=== PATIENT | female | born 1985 | race Caucasian/White ===

== ENCOUNTER 2021-04-19 10:06 | Outpatient (CLI) | payer BC, SELFPAY ==
--- NOTE | ~2021-04-19 | XR_ITS ---
EXAMINATION: XR foot RT min 3V DATE: 04/19/2021 10:28 INDICATION: Right heel pain TECHNIQUE: Dorsoplantar, two oblique and lateral views of the right foot were obtained. COMPARISON: None. FINDINGS: Alignment is normal. Subtle flattening and minimal subarticular sclerosis at the head of the second m etatarsal consistent with osteonecrosis/Freiberg's infraction. No fracture. Joint spaces are normal. Tiny plantar calcaneal spur. No cortical erosions. Soft tissues are unremarkable. IMPRESSION: 1. Tiny plantar calcaneal spur. No acute osseous abnormality. Reviewed, dictated and finalized at location A.
== END 2021-04-19 10:07 | disposition home or self-care (01) ==
LOC: CHSIMG 10:10
PROVIDERS: PCP Family Medicine; Visit Provider Family Medicine
DX: M79.671 Pain in right foot (principal)
CPT/HCPCS: 73630

== ENCOUNTER 2021-05-25 10:40 | Outpatient (RCR) | payer BC, SELFPAY ==
--- NOTE | 2021-05-25 14:05 | PTOPEVAL ---
Thank you for referring Korin Gant to [facility].? The patient is scheduled to be seen for therapy? __2__x/week for 8 visits. Please review, sign, date and return this plan of care CHIDI. I agree with and certify that the following plan of care is medically necessary. Referring Physician Date Admitting Provider: Attending Provider: Chandu Ramos MD Referring Provider: *PT Outpatient Evaluation Start: 05/25/21 13:41 Freq: Status: Active Protocol: Document 05/25/21 10:42 [facility] (Rec: 05/25/21 14:04 [facility] [email or web address]) Therapy Assessment Status Assessment Status Assessment Status Evaluation Evaluation Information Problem Diagnosis right plantar fasciitis Onset 12/06/20 Subjective Information Pt. reports that she began Query Text:As Reported By Patient/ noting right heel pain around Family December. She did some stretching and pain subsided. She then went to [place] in [place] [facility] and pain began to increase. She describes pain on the inside of the right heel. She states that pain is worsened with standing. She enjoys exercise, but has not been able to exercise as of recently to due pain. She reports that her goal for therapy is to decrease her right foot pain. Pain Assessment Timing of Pain Assessment Timing of Pain Assessment Pre-Treatment Pain Scale Pain Scale Used Numeric (1 - 10) Self Report Pain Assessment Right Heel(s) Reported Pain Level 5 Pain Aggravating Factors Exercise/Activity,Walking, Weight Bearing/Standing Pain Score Pain Score 5: Self Report Interventions Used Interventions Used By Clinicians Exercise,Mobilization,Manual Therapy Techniques Lower Extremity Range of Motion General Lower Extremity Range of Motion Gross Lower Extremity Range of Motion -Pt. demonstrates 4 degrees Comments right ankle dorsiflexion with the knee fully extended and 12 degrees left ankle dorsiflexion with the knee fully extended. Posture Posture Standing Position Additional Posture Comments Note mild calcaneal valgus with forefoot varus in standing. Slight genu valgus on both ri
--- NOTE | 2021-06-15 15:42 | PTOPEVAL ---
Thank you for referring Korin Gant to [facility].? The patient is scheduled to be seen for therapy? ____x/week for ___ weeks. Please review, sign, date and return this plan of care CHIDI. I agree with and certify that the following plan of care is medically necessary. Referring Physician Date Admitting Provider: Attending Provider: Chandu Ramos MD Referring Provider: *PT Outpatient Evaluation Start: 05/25/21 13:41 Freq: Status: Active Protocol: Document 06/15/21 13:18 [facility] (Rec: 06/15/21 14:47 [facility] [email or web address]) Therapy Assessment Status Assessment Status Assessment Status Discharge Evaluation Information Problem Diagnosis R Plantar Fasciitis Onset 12/06/20 Additional Evaluation Detail LEFS = 37% Functionally Declined Subjective Information Pt reports that her pain has Query Text:As Reported By Patient/ gotten much better over her Family course of therapy. She has been stretching two times a day and says that if her pain flares up, she is able to reduce her pain by stretching. Pain Assessment Timing of Pain Assessment Timing of Pain Assessment Pre-Treatment Pain Scale Pain Scale Used Numeric (1 - 10) Self Report Pain Assessment Right Heel(s) Reported Pain Level 1 Pain Description Dull,Sharp Pain Score Pain Score 1: Self Report Interventions Used Interventions Used By Clinicians Education,Exercise Lower Extremity Range of Motion General Lower Extremity Range of Motion Gross Lower Extremity Range of Motion R ankle df = 20 degrees Comments L ankle df = 20 degrees Lower Extremity Muscle Strength Testing General Lower Extremity Strength Reason Not Measured WNL/Left,WNL/Right Posture Posture Standing Position Additional Posture Comments R Navicular Tubercle protrudes more than the L in standing barefoot. Palpation Assessment Palpation Palpation No pain with palpation to the L LE medial calcaneal tubercle Gait Assessment Gait Pattern Assessment Gait Pattern No Deviations/Normal General Exercise General Exercises Exercise Description Ther ex Query Text:Record Sets, Reps, -standing gastroc stretch x 2 Resistance, and Position minutes -standing soleus stretch x 2 minutes -plantar fascia stretch x 2 minutes -standing ankle dorsiflexion A
== END 2021-06-15 16:47 | disposition home or self-care (01) ==
LOC: CHSPT 10:40
PROVIDERS: PCP Family Medicine; Visit Provider Family Medicine
DX: M72.2 Plantar fascial fibromatosis (principal)
CPT/HCPCS: 97110; 97112; 97140; 97161

== ENCOUNTER 2023-02-27 08:08 | Emergency (ER) | payer BC, SELFPAY ==
[2023-02-27 08:20] VITALS: BP 114/71; PULSE 99; RESP 16; TEMP 36.7; O2SAT 99
--- NOTE | 2023-02-27 08:23 | ED.GENADULT ---
HPI - General Adult General Chief complaint: Upper Respiratory Infection Stated complaint: COUGH/SINUS PRESSURE/CONGESTION Source: patient, RN notes reviewed and old records reviewed Mode of arrival: ambulatory Limitations: no limitations History of Present Illness HPI narrative: 37-year-old female presents to [facility] with complaint of sinus congestion, sinus pressure, cough, postnasal drip that started Sunday. Patient taking Zyrtec with no relief. Patient denies chest pain, dizziness, weakness, shortness of breath MD complaint: congestion Onset (ago): day(s) (4) Related Data Home Medications Medication Instructions Recorded Confirmed No Home Medications 02/27/23 02/27/23 Allergies Allergy/AdvReac Type Severity Reaction Status Date / Time No Known Allergies Allergy Unverified 02/27/23 08:27 Review of Systems Constitutional: Constitutional: Reports no additional constitutional complaints, Denies body ache(s), Denies chills, Denies fatigue, Denies fever(s) and Reports headache(s) Eyes: Eyes: Reports no additional eye complaints and Denies blurry vision ENT: Reports system reviewed and no additional complaints, except as documented, Denies vertigo, Denies dizziness, Denies ear discharge, Denies otalgia, Denies facial pain, Denies headache(s), Reports nasal congestion, Reports nasal discharge, Reports sinus pain, Reports sinus pressure and Denies sore throat Cardiovascular: Cardiovascular: Reports no additional cardiovascular complaints, Denies chest pain, Denies chest pain at rest, Denies rapid heart rate and Denies dyspnea Respiratory: Respiratory: Reports no additional respiratory complaints, Denies chest congestion, Reports cough, Denies pain on inspiration, Denies pain with cough and Denies dyspnea Gastrointestinal: Gastrointestinal: Denies abdominal pain, Denies diarrhea, Denies nausea and Denies vomiting Integumentary/Breasts: Skin/Breast: Denies rash Neurologic: Reports system reviewed and no additional complaints, except as documented, Denies vertigo, Denies dizziness and Denies headache(s) Endocrine: Endocrine: Denies fatigue PMFSH Comments At the time of my signature, I reviewed and agree with the nursing past medical, surgical, social, and family history. There is no relevant family history pertinent to the patient complaint. Exam Const: General: cooperative, healthy appearing, no acute distress and well nourished Nutritional Appearance: well nourished Orientation/consciousness: patient oriented x3 Limitations: no limitations [facility]: Head: normal to inspection and normocephalic Ears: external ears normal, TM's normal bilaterally, mastoids normal and Abnormal EAC present Face/Nose/Sinus: normal facial exam Face and sinus: normal facial exam Mouth: Yes Normal oral and palatal mucosa present, Yes oropharynx normal and Yes moist mucous membranes Throat: posterior oropharynx normal, tonsils normal, uvula midline and no uvular edema Eyes: General: appearance normal, both eyes and all related structures Sclera: sclerae normal Pupils: Equal, round and reactive pupils present Resp: Effort & Inspection: normal respiratory effort, able to speak in complete sentences, no audible wheezes, no cough, no respiratory distress and no retractions Auscultation: clear to auscultation bilaterally, no crackles, no rales, no rhonchi and no wheezes Cardio: Rate: regular rate Rhythm: regular rhythm Skin: General skin exam: normal color and no rashes or lesions noted Neuro: General: patient oriented x3 Cranial nerves: Yes Equal, round and reactive pupils present Psych: Appearance: grossly normal Mental Status: mental status grossly normal Speech and movement: Normal speech and movement present Affect: normal affect Course Course Emergency Course: Patient is aware of diagnosis, understands and agrees to treatment plan.? Anticipatory guidance given.? Patient agrees to follow-up as directed and is aware of william
== END 2023-02-27 08:45 | disposition home or self-care (01) ==
PROVIDERS: Emergency Provider Registered Nurse; PCP Family Medicine
DX: J10.1 Influenza due to other identified influenza virus with other respiratory manifestations (principal); Z20.822 Contact with and (suspected) exposure to COVID-19
CPT/HCPCS: 87426; 87804; 99213; G0463

== ENCOUNTER 2023-03-28 12:10 | Outpatient (CLI) | payer BC, SELFPAY ==
[2023-03-28 12:51] LABS: Cholesterol 190 mg/dL (0-200); HDL Direct 53 mg/dL; Triglycerides 136 mg/dL (<150)
[2023-03-28 13:02] LABS: LDL Cholesterol Direct 114 mg/dL
[2023-03-28 13:14] LABS: Free T4 Free Thyroxine 1.01 ng/mL (0.78-2.19); Vitamin D 25 Hydroxy 27.4 ng/mL
[2023-03-28 13:48] LABS: Ferritin 6.41 ng/mL (6.24-137); Iron 29 ug/dL (37-170); Percent Iron Saturation 7 % (20-50)
[2023-03-28 13:58] LABS: Folic Acid 6.5 ng/mL (2.76->20)
[2023-03-31 05:59] LABS: Thyroid Peroxidase Antibodies <1 IU/mL (<9)
[2023-04-01 13:38] LABS: Testosterone Free 2.9 pg/mL (0.1-6.4); Testosterone Total 28 ng/dL (2-45)
[2023-04-02 12:53] LABS: FSH 10.1 mIU/mL (***); LH 4.5 mIU/mL (***); Progesterone 0.4 ng/mL (***)
[2023-04-03 17:22] LABS: Estrogen 155 pg/mL
== END 2023-03-28 12:11 | disposition home or self-care (01) ==
LOC: ANHLAB 12:11
PROVIDERS: PCP Nurse Practitioner Family; Visit Provider Nurse Practitioner Family
DX: R53.83 Other fatigue (principal); Z76.89 Persons encountering health services in other specified circumstances; Z13.21 Encounter for screening for nutritional disorder; D64.9 Anemia, unspecified; R23.2 Flushing; E55.9 Vitamin D deficiency, unspecified
CPT/HCPCS: 36415; 80061; 82306; 82607; 82672; 82728; 82746; 83001; 83002; 83540; 83550; 84144; 84402; 84403; 84439; 84443; 86376

== ENCOUNTER 2024-04-16 12:47 | Outpatient (CLI) | payer OTHER, SELFPAY ==
[2024-04-16 13:15] LABS: Basophils Absolute Auto 0.1 K/mm3 (0.0-0.1); Basophils Percent Auto 1.2 % (0.2-1.2); Eosinophils Absolute Auto 0.2 K/mm3 (0-0.3); Eosinophils Percent Auto 3.1 % (0-4.4); Hematocrit 32.7 % (37.0-47.0); Hemoglobin 10.1 g/dL (12.0-15.0); Immature Granulocyte Absolute 0.01 K/mm3 (0.00-0.031); Immature Granulocyte Percent A 0.2 % (0-0.5); Lymphocytes Absolute Auto 2.08 K/mm3 (0.9-3.2); Lymphocytes Percent Auto 35.6 % (18.3-44.2); Mean Corpuscular HGB Conc 30.9 g/dl (32-36); Mean Corpuscular Hemoglobin 24.8 pg (26-34); Mean Corpuscular Volume 80.1 fl (80-100); Mean Platelet Volume 10.3 fl (7.4-10.4); Monocytes Absolute Auto 0.4 K/mm3 (0.1-0.6); Monocytes Percent Auto 6.5 % (2.6-8.5); Neutrophils Absolute Auto 3.1 K/mm3 (1.3-6.7); Neutrophils Percent Auto 53.4 % (45.5-73.1); Platelet Count Result 377 k/mm3 (150-375); Red Blood Count 4.08 M/mm3 (4.2-5.4); White Blood Count 5.8 K/mm3 (4.5-10.0)
[2024-04-16 13:23] LABS: Iron 32 ug/dL (37-170)
[2024-04-16 13:32] LABS: Percent Iron Saturation 7 % (20-50)
[2024-04-16 13:55] LABS: Vitamin D 25 Hydroxy 25.7 ng/mL
--- OUTSIDE RECORDS SUMMARY | 2024-04-16 14:02 | XMS_ITS | Referral Summary ---
Author Organization [facility] Address [address] [place] [address] Care Team Providers Care Teamcenter Consultant Name Role Phone Chandu Ramos MD Primary Care Provider [phone] Source Comments [facility],non-owned Affiliates and Associated Physician Practices is amultiple site organization consisting of ambulatory clinics and hospital sitesin [place], [place], [place] and [place]. This disclosure is being madepursuant to the Care Everywhere program and may not contain all information available regarding this patient. Last updated 17.[facility] Allergies Active Allergy Reactions Criticality Noted Date Comments Contrast-Gadolinium Agents For Mri Itching 0 06/28/2017 Medications * Be aware that medications may not be up to date on this document. Alwaysverify current medications with the patient. Medication Sig Dispensed Refills Start Date End Date Status IRON, FERROUS SULFATE, PO Active Ascorbic Acid (VITAMIN C PO) Active Acetaminophen (TYLENOL 8 HOUR PO) Activ e amitriptyline (ELAVIL) 25 MG tabletIndications:Mi graine Take 1 tablet by mouth every evening Reasons: Migraine Headache 30 tablet 5 06/28/2017 Active Active Problems Problem Noted Date Diagnosed Date Aneurysm 06/28/2017 Intractable chronic migraine without aura and without status migrainosus 06/28/2017 Social History Tobacco Use Types Packs/Day Years Used Date Smoking Tobacco: Never Smokeless Tobacco: Never Sex and Gender Information Value Date Recorded Sex Assigned at Not on file Gender Identity Not on file Sexual Orientation Not on file Last Filed Vital Signs Vital Sign Reading Time Taken Comments Blood Pressure - - Pulse - - Temperature - - Respiratory Rate - - Oxygen Saturation - - Inhaled Oxygen Concentration - - Weight 76.2 kg (168 lb) 06/28/2017 9:07 AM CDT Height - - Body Mass Index - - Plan of Treatment Not on file Care Teams Teamcenter Consultant Relationship Specialty Start Date End Date Chandu Ramos MD [address] [place] [id number] PCP - General 05/17/17
--- OUTSIDE RECORDS SUMMARY | 2024-04-16 14:02 | XMS_ITS | Clinical Summary ---
Author Organization [address] Address [address] [place] [address] Care Team Providers Care Creative Coordinator Name Role Phone No, Physician Primary Care Provider [phone] Allergies Active Allergy Reactions Criticality Noted Date Comments Iodinated Contrast Media Itching Low 10/18/2021 Medications cetirizine 10 mg capsule Take by mouth Active amitriptyline (ELAVIL) 25 mg tablet Take 1 tablet (25 mg total) by mouth nightly 06/28/2017 Active Active Problems Problem Noted Date Diagnosed Date Aneurysm 06/28/2017 Intractable chronic migraine without aura and without status migrainosus 06/28/2017 Surgical History Surgery Date Site/Laterality Comments TRANSUMBILICAL AUGMENTATION MAMMAPLASTY 02/06/2020 - 02/04/2021 Bilateral Social History Tobacco Use Types Packs/Day Years Used Date Smoking Tobacco: Never Tobacco Cessation:Counseling Given: Not Answered Personal Safety Answer Date Recorded Getting School Help Needed Not on file 04/07 Comments Unknown Sex and Gender Information Value Date Recorded Sex Assigned at Not on file Legal Sex Female 11:47 AM CDT Gender Identity Not on file Sexual Orientation Not on file Obstetrics History Last Filed Vital Signs Vital Sign Reading Time Taken Comments Blood Pressure 110/70 06/22/2023 9:03 AM CDT Pulse 89 06/22/2023 9:03 AM CDT Temperature 36.8 C (98.3 F) 06/22/2023 9:03 AM CDT Respiratory Rate 18 06/22/2023 9:03 AM CDT Oxygen Saturation 98% 06/22/2023 9:03 AM CDT Inhaled Oxygen Concentration - - Weight 70.3 kg (155 lb) 06/22/2023 9:03 AM CDT Height 175.3 cm (5' 9 ) 06/22/2023 9:03 AM CDT Body Mass Index 22.89 06/22/2023 9:03 AM CDT Plan of Treatment Health Maintenance Due Date Last Done Comments Cervical Cancer Screening 1987 Depression Screening 1987 Hepatitis C Screening 1987 Varicella Vaccines (1 of 2 - 13+ 2-dose series) 09/28/2000 Regular Well Visit/Exam 18-64 09/28/2005 Influenza Vaccine (#1) 2023 DTaP/Tdap/Td Vaccine (7 - Td or Tdap) 09/08/2024 09/08/2014, 04/03/2007, 10/16/1997, Additional history exists Hepatitis B Screening Completed 04/24/1998 , 11/23/1997, 10/16/1997 HPV Vaccines Aged Out No longer eligi ble based on patient's age to complete this topic Pneumococcal vaccine <65 Aged Out No longer eligible based on patient's age to complete this topic Insurance [place] [employer]2020 CHOICE OOS Care Teams Creative Coordinator Relationship Specialty Start Date End Date No, Physician PCP - General 10/18/21
--- OUTSIDE RECORDS SUMMARY | 2024-04-16 14:02 | XMS_ITS | Referral Summary ---
Author Organization [address] Address [address] [place] [address] Care Team Providers Care Crusher Loader Operator Name Role Phone No, Physician Primary Care Provider [phone] Allergies Active Allergy Reactions Criticality Noted Date [...] 06/22/2023 9:03 AM CDT Plan of Treatment Not on file Insurance [employer] CHO[employer] OOS Care Teams Crusher Loader Operator Relationship Specialty Start Date End Date No, Physician PCP - General 10/18/21
--- OUTSIDE RECORDS SUMMARY | 2024-04-16 14:02 | XMS_ITS | Clinical Summary ---
Author Organization [facility] Address [address] [place] [address] Care Team Providers Care Intravenous Therapy Nurse Name Role Phone Chandu Ramos MD Primary Care Provider [phone] Source Comments [facility],non-owned Affiliates and Associated Physician Practices is amultiple site organization consisting of ambulatory clinics and hospital sitesin [place], [place], [place] and [place]. This disclosure is being madepursuant to the Care Everywhere program and may not contain all information available regarding this patient. Last updated 17.[facility] Allergies Active Allergy Reactions Criticality Noted Date [...] Mass Index - - Plan of Treatment Health Maintenance Due Date Last Done Comments PAP SMEAR 1987 HIV SCREENING 09/28/2002 HEPATITIS C SCREENING 09/24/2005 DTAP/TDAP/TD VACCINES (1 - Tdap) 09/28/2006 HEPATITIS B VACCINE (1 of 3 - 19+ 3-dose series) 09/28/2006 COVID-19 VACCINE (1 - 2023-2 5 season) 2023 INFLUENZA VACCINE (#1) 2023 DEPRESSION SCREENING 02/06/2024 ZOSTER VACCINE (1 of 2) 09/28/2037 HIB VACCINE Aged Out No longer eligi ble based on patient's age to complete this topic HPV VACCINE Aged Out No longer eligi ble based on patient's age to complete this topic MENINGOCOCCAL (Group B) VACC INE SHARED DECISION-MAKING Aged Out No longer eligibl e based on patient's age to complete this topic MENINGOCOCCAL GROUPS A/C/Y/W VACCINE Aged Out No longer eligible b ased on patient's age to complete this topic PNEUMOCOCCAL VACCINE Aged Out No long er eligible based on patient's age to complete this topic Care Teams Intravenous Therapy Nurse Relationship Specialty Start Date End Date Chandu Ramos MD [address] [place] [address] PCP - General 05/17/17
--- OUTSIDE RECORDS SUMMARY | 2024-04-16 14:02 | XMS_ITS | Patient Health Summary ---
Author Organization [facility] Address [address] [place] [address] Care Team Providers Care Qm Nurse Name Role Phone Chandu Ramos MD Primary Care Provider [phone] Note from [facility],non-owned Affiliates and Associated Physician Practices is amultiple site organization consisting of ambulatory clinics and hospital sitesin [place], [place], [place] and [place]. This disclosure is being madepursuant to the Care Everywhere program and may not contain all information available regarding this patient. Last updated 17.[facility] Allergies * Contrast-Gadolinium Agents For Mri(Itching) Medications * Be aware that medications may not be up to date on this document. Alwaysverify current medications with the patient. * IRON, FERROUS SULFATE, PO * Ascorbic Acid (VITAMIN C PO) * Acetaminophen (TYLENOL 8 HOUR PO) * amitriptyline (ELAVIL) 25 MG tablet(Started 06/28/2017) Take 1 tablet by mouth every evening Reasons: Migraine Headache 5 refills remaining Active Problems Problem Noted Date Diagnosed Date [...] - - Body Mass Index - - Care Teams Qm Nurse Relationship Specialty Start Date End Date Chandu Ramos MD [address] [place] [id number] PCP - General 05/17/17
[2024-04-16 15:55] LABS: Alanine Aminotransferase 31 U/L (6-35); Albumin Level 4.5 g/dL (3.5-5.1); Alkaline Phosphatase 49 U/L (38-126); Anion Gap 9 mmol/L (4-12); Aspartate Amino Transferase 32 U/L (14-36); Bilirubin,Total 0.2 mg/dL (0.2-1.3); Blood Urea Nitrogen 17 mg/dL (7-17); Calcium 8.8 mg/dL (8.4-10.2); Carbon Dioxide 27 mmol/L (22-30); Chloride 105 mmol/L (98-107); Estimated Glomerular Filt Rate > 60; Glucose 67 mg/dL (65-110); Potassium 3.9 mmol/L (3.4-5.0); Sodium 141 mmol/L (137-145)
[2024-04-16 17:03] LABS: Folic Acid 13.7 ng/mL (2.76->20)
[2024-04-18 09:55] LABS: Thyroid Peroxidase Antibodies 1 IU/mL (<9)
== END 2024-04-16 12:48 | disposition home or self-care (01) ==
LOC: ANHLAB 12:48
PROVIDERS: PCP Nurse Practitioner Family; Visit Provider Nurse Practitioner Family
DX: D50.9 Iron deficiency anemia, unspecified (principal); Z00.00 Encounter for general adult medical examination without abnormal findings; D64.9 Anemia, unspecified; E55.9 Vitamin D deficiency, unspecified; R53.83 Other fatigue
CPT/HCPCS: 36415; 80053; 82306; 82607; 82746; 83540; 83550; 84443; 85025; 86376